=== PATIENT | female | born 1995 | race Caucasian/White ===

== ENCOUNTER → 2017-02-17 | Outpatient (REF) | payer OTHER | LOC: M SFHCLERA 09:59 | PROVIDERS: ATTEND Nurse Practitioner Family | DX: J02.9 Acute pharyngitis, unspecified (principal) ==

== ENCOUNTER → 2017-05-27 | Outpatient (CLI) | payer OTHER ==
--- NOTE | 2017-05-27 16:57 | REP ---
Cervical spine three views: There are no comparisons. Vertebral body heights, interspacing alignment are normal. The facets are normally aligned. Prevertebral soft tissues are normal. Impression: There is no evidence of fracture or listhesis. Signed by Mingo Sarmiento MD 05/27/2017 04:49 P
== END ==
LOC: M LRY 15:32
PROVIDERS: ATTEND Physician Assistant Medical
DX: S13.9XXA Sprain of joints and ligaments of unspecified parts of neck, initial encounter (principal); X58.XXXA Exposure to other specified factors, initial encounter; Y92.9 Unspecified place or not applicable; Y93.9 Activity, unspecified; Y99.9 Unspecified external cause status

== ENCOUNTER → 2017-10-14 | Outpatient (REF) | payer OTHER | LOC: M SFHCLERA 15:32 | PROVIDERS: ATTEND Nurse Practitioner Family | DX: M54.5 Low back pain (principal) ==

== ENCOUNTER → 2017-12-05 | Outpatient (REF) | payer OTHER | LOC: M LAB REF 19:24 | DX: J02.9 Acute pharyngitis, unspecified (principal) ==

== ENCOUNTER → 2017-12-11 | Outpatient (CLI) | payer OTHER | LOC: M WUC 11:01 | DX: J20.9 Acute bronchitis, unspecified (principal) | CPT/HCPCS: 71046 ==

== ENCOUNTER → 2018-02-05 | Outpatient (REF) | payer OTHER | LOC: M LAB REF 16:32 | DX: A08.4 Viral intestinal infection, unspecified (principal) ==

== ENCOUNTER → 2018-07-20 | Outpatient (REF) | payer OTHER | LOC: M SFHCLERA 12:09 | DX: J02.9 Acute pharyngitis, unspecified (principal) ==

== ENCOUNTER → 2018-10-29 | Outpatient (REF) | payer OTHER | LOC: M SFHCLERA 20:12 | PROVIDERS: ATTEND Nurse Practitioner Family | DX: R30.0 Dysuria (principal) ==

== ENCOUNTER → 2018-12-16 | Outpatient (REF) | payer OTHER ==
[2018-12-16 13:15] LABS: INFLUENZA A AMPLIFICATION NEGATIVE (NEGATIVE); INFLUENZA B AMPLIFICATION NEGATIVE (NEGATIVE)
== END ==
LOC: M LAB REF 11:47
PROVIDERS: ATTEND Physician Assistant
DX: R50.9 Fever, unspecified (principal)

== ENCOUNTER → 2020-11-06 | Outpatient (CLI) | payer OTHER ==
--- NOTE | 2020-11-06 14:00 | REP ---
INDICATION: N91.5 OLIGOMENORRHEA COMPARISON: None. TECHNIQUE: Transabdominal pelvic ultrasound followed by transvaginal examination for better evaluation of the endometrium and adnexa with color Doppler evaluation of the ovaries. FINDINGS: Bladder is unremarkable and measures 9.2 x 6.1 x 8.3 cm. Heterogeneous anteverted uterus measures 5.7 x 2.9 x 3.2 cm. The endometrial complex measures 6.9 mm thickness. Few nabothian cysts are identified measuring up to 11 mm. Bilateral ovaries are normal in appearance and vascularity without evidence for torsion. Right ovary measures 3.4 x 2.6 x 3.7 cm; left ovary measures 3.4 x 2.2 x 2.4 cm. No pelvic fluid or adnexal mass lesion. IMPRESSION: Nabothian cysts measuring up to 11 mm. Otherwise normal pelvic ultrasound. <Electronically signed by Justino Charles > 11/06/20 [id number]
== END ==
LOC: M WHC 13:09
PROVIDERS: ATTEND Obstetrics & Gynecology
DX: N91.5 Oligomenorrhea, unspecified (principal); N88.8 Other specified noninflammatory disorders of cervix uteri

== ENCOUNTER → 2020-11-06 | Outpatient (CLI) | payer OTHER ==
[2020-11-06 16:28] LABS: HEMATOCRIT 41.1 % (36.0-47.0); HEMOGLOBIN 13.4 g/dl (12.0-15.5); MEAN CORPUSCULAR HEMOGLOBIN 29.5 pg (27.0-33.0); MEAN CORPUSCULAR HGB CONC 32.6 g/dl (32.0-36.5); MEAN CORPUSCULAR VOLUME 90.3 fl (80.0-96.0); PLATELET COUNT, AUTOMATED 308 10^3/uL (150-450); RED BLOOD COUNT 4.55 10^6/uL (4.00-5.40); WHITE BLOOD COUNT 7.7 10^3/uL (4.0-10.0)
[2020-11-06 16:55] LABS: HEMOGLOBIN A1c 5.2 %
[2020-11-06 17:02] LABS: FREE T4 1.11 NG/DL (0.76-1.46); THYROID STIMULATING HORMONE 2.86 uIU/ML (0.358-3.740)
== END ==
LOC: M PLALAB 13:46
PROVIDERS: ATTEND Obstetrics & Gynecology
DX: N91.5 Oligomenorrhea, unspecified (principal)

== ENCOUNTER → 2021-09-25 | Outpatient (CLI) | payer OTHER ==
[~2021-09-25] MED LIST: ISOVUE-370 76% 100ML VIAL As Ordered ONE
--- NOTE | 2021-09-25 18:18 | REP ---
INDICATION: INFERTILITY. COMPARISON: None. TECHNIQUE: The endometrium was cannulated and contrast was injected by the attending last dipper . Fluoroscopic spot films were acquired by [facility] Moran, under the direct supervision of Dr. Walker. Images reviewed prior to dictation with Dr. Walker. FINDINGS: Fluoroscopy spot radiographs document filling of a normal endometrial cavity. There is normal isthmic and ampullary fallopian tube opacification, and bilateral tubal patency was documented. IMPRESSION: Normal hysterosalpingogram with bilateral tubal patency documented. 0.3 minutes of fluoroscopy time was utilized for this procedure. Some fluoroscopic images are performed with last image hold technology. These images require no additional radiation. <Electronically signed by Karma Mckenzie > 09/25/21 1600 <Electronically signed by Mingo Walker > 09/25/21 [id number]
== END ==
LOC: M RADPRO 11:24
PROVIDERS: ATTEND Obstetrics & Gynecology
DX: N97.9 Female infertility, unspecified (principal)
CPT/HCPCS: 58340; 74740; Q9967

== ENCOUNTER 2023-11-27 08:43 | Day surgery (SDC) | payer BC ==
[~2023-11-27] VITALS: Ht 165.1 cm; Wt 171.5 kg
[~2023-11-27 08:43] MED LIST changes: +BUPR300T92 PO; +D-101000 PO; -ISOVUE-370 76% 100ML VIAL As Ordered ONE; +LISD30CA PO; +METO1TAB87 PO; +MULT-90 PO; +NS 1,000 ML IV ONE; +OMEG-30 PO; +OMEP40CA5 PO; +VITA250C5 PO; +propofoL 200 MG/20 ML VIAL As Ordered ONE
[2023-11-27] MEDS ORDERED: propofoL 200 MG/20 ML VIAL As Ordered ONE (09:21)
[2023-11-27] MEDS ORDERED: ONDANSETRON 4MG 2ML VIAL As Ordered ONE (09:23)
[2023-11-27] MEDS ORDERED: LIDOCAINE 2% 100MG/5ML SDV (FOR ANES.) As Ordered ONE (09:28)
[2023-11-27 09:44] VITALS: TEMP 97.8
[2023-11-27 10:00] VITALS: BP 128/77; O2SAT 96
== END 2023-11-27 10:19 | disposition home or self-care (01) ==
LOC: M OPP 08:43
PROVIDERS: ATTEND Internal Medicine Gastroenterology
DX: K31.A19 Gastric intestinal metaplasia without dysplasia, unspecified site (principal); K22.70 Barrett's esophagus without dysplasia; R13.10 Dysphagia, unspecified; Z79.899 Other long term (current) drug therapy; Z88.0 Allergy status to penicillin; Z88.1 Allergy status to other antibiotic agents
CPT/HCPCS: 43239; 88305; J2405

== ENCOUNTER → 2025-08-22 | Outpatient (REF) | payer BC, MEDICAID, OTHER ==
[~2025-08-22] MED LIST changes: +BUPR-766 PO; -BUPR300T92 PO; -NS 1,000 ML IV ONE; -propofoL 200 MG/20 ML VIAL As Ordered ONE
[2025-08-25 09:04] LABS: HPV APTIMA Not Detected (Not Detected)
== END ==
LOC: M SFHCWAGY 17:36
PROVIDERS: ATTEND Nurse Practitioner Family
DX: Z12.4 Encounter for screening for malignant neoplasm of cervix (principal)